=== PATIENT | male | born 1955 | race African-American/Black ===

== ENCOUNTER → 2017-06-28 | Outpatient (CLI) | payer MEDICARE ==
--- NOTE | 2017-06-28 10:58 | RADIOLOGY REPORT (SQ) ---
EXAM DESCRIPTION: MRI TEMPOROMANDIBULAR JOINTS COMPLETED DATE/TIME: 06/28/2017 9:26 am REASON FOR STUDY: R68.84 JAW PAIN R68.84 JAW PAIN COMPARISON: None. TECHNIQUE: Sagittal T1 and T2 weighted images were obtained with the jaw in open and closed position s. Coronal T1 sequence were obtained as well. Sagittal cine sequences obtained during jaw opening b ilaterally. LIMITATIONS: None. FINDINGS: Right TMJ: Normally situated in the fossa on closed imaging. Appropriate translation wit h jaw opening. No disc subluxation evident. Left TMJ: Normally situated in the fossa on closed imaging. Appropriate translation with jaw opening . No disc subluxation evident. Other: Minimal left mastoid fluid is suggested. Normal marrow signal in the mandible. IMPRESSION: 1. TMJs look symmetric and normal bilaterally. 2. Mild left mastoid effusion. TECHNICAL DOCUMENTATION: JOB ID: [id number] [employer]- All Rights Reserved
== END ==
LOC: RAD 08:20
PROVIDERS: ATTEND Physician Assistant
DX: R68.84 Jaw pain (principal); M26.69 Other specified disorders of temporomandibular joint
CPT/HCPCS: 70336